=== PATIENT | female | born 1950 | race Caucasian/White ===

== ENCOUNTER → 2016-09-09 | Outpatient (CLI) | payer MEDICARE | LOC: EXRD 13:13 | DX: C50.219 Malignant neoplasm of upper-inner quadrant of unspecified female breast (principal) | CPT/HCPCS: 77080 ==

== ENCOUNTER → 2020-09-13 | Outpatient (CLI) | payer OTHER | LOC: EXRD 12:43 | DX: C50.219 Malignant neoplasm of upper-inner quadrant of unspecified female breast (principal); M85.88 Other specified disorders of bone density and structure, other site | CPT/HCPCS: 77080 ==

== ENCOUNTER → 2021-10-17 | Outpatient (CLI) | payer OTHER | LOC: EXRD 09-17 11:30 | DX: C50.219 Malignant neoplasm of upper-inner quadrant of unspecified female breast (principal); M85.88 Other specified disorders of bone density and structure, other site; Z85.3 Personal history of malignant neoplasm of breast | CPT/HCPCS: 77080 ==